=== PATIENT | female | born 1955 | race Two or more races ===

== ENCOUNTER 2023-05-12 03:54 | Emergency (ER) | payer OTHER ==
[2023-05-12] MEDS ORDERED: SODIUM CHLORIDE 0.9% 1,000 ML IV STA (04:08)
--- NOTE | 2023-05-12 04:08 | ED Physician Documentation ---
PD HPI FEMALE - Stated complaint Stated Complaint: blood in urine - History obtained from History obtained from: Patient - Additional information Additional information: 67-year-old female with no reported past medical history presents by private vehicle from home for painless hematuria. Patient states that she got up to use the restroom at 1 AM and noticed pink-tinged with blood clots to her urine. She states that this happened once 3 years ago and she was diagnosed with a kidney stone Review of Systems Constitutional: denies: Fever, Chills Ears: denies: Loss of hearing, Ear pain, Drainage/discharge GI: denies: Abdominal Pain, Nausea, Vomiting : reports: Dysuria, Hesitancy. denies: Frequency, Unable to Void, Incontinent Musculoskeletal: denies: Neck pain, Back pain, Extremity pain PD PAST MEDICAL HISTORY - Past Medical History Past Medical History: No : Kidney stones - Present Medications Home Medications: Ambulatory Orders Medication Instructions Recorded Confirmed Phenazopyridine HCl [Pyridium] 200 mg PO TID #20 tablet 05/12/23 cephALEXin [Keflex] 500 mg PO BID #14 cap 05/12/23 - Allergies Allergies/Adverse Reactions: Allergies Allergy/AdvReac Type Severity Reaction Status Date / Time No Known Drug Allergies Allergy Verified 05/12/23 04:03 PD ED PE NORMAL - Vitals Vital signs reviewed: Yes - General General: Alert and oriented X 3, No acute distress, Well developed/nourished - Cardiac Cardiac: RRR, Strong equal pulses - Respiratory Respiratory: No respiratory distress, Clear bilaterally - Abdomen Abdomen: Soft, Non tender, Non distended - Female Female : Other (cervical irritation, no bleeding, no abnormal discharge) - Rectal Rectal: Deferred - Derm Derm: Normal color, Warm and dry, No rash - Extremities Extremities: No deformity, No tenderness to palpate, Normal ROM s pain, No edema - Neuro Neuro: Alert and oriented X 3, 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, No motor deficit, Normal speech - Psych Psych: Normal mood, Normal affect Results - Vitals Vitals: Vital Signs - 24 hr 05/12/23 05/12/23 04:04 04:20 Temperature 36.8 C Heart Rate 77 90 Respiratory 16 16 Rate Blood Pressure 127/80 O2 Saturation 99 99 Oxygen O2 Source Room air - Labs Labs: Laboratory Tests 05/12/23 05/12/23 05/12/23 04:17 04:17 04:39 WBC 8.3 RBC 5.12 Hgb 14.2 Hct 44.2 MCV 86.3 MCH 27.7 MCHC 32.1 RDW 15.1 H Plt Count 288 MPV 9.1 Neut # (Auto) 5.5 Lymph # (Auto) 2.0 [place] # (Auto) 0.7 Eos # (Auto) 0.1 Baso # (Auto) 0.0 Absolute Nucleated RBC 0.00 Nucleated RBC % 0.0 Sodium 138 Potassium 3.8 Chloride 104 Carbon Dioxide 29 Anion Gap 5.0 L BUN 16 Creatinine 0.7 Estimated GFR (MDRD) 83 L Glucose 98 Calcium 9.7 Total Bilirubin 0.4 AST 25 ALT 35 Alkaline Phosphatase 110 Total Protein 7.0 Albumin 4.0 Globulin 3.0 Albumin/Globulin Ratio 1.3 Urine Color YELLOW Urine Clarity BLOODY Urine pH 6.0 Ur Specific [place] 1.025 Urine Protein 100 H Urine Glucose (UA) NEGATIVE Urine Ketones NEGATIVE Urine Occult Blood LARGE H Urine Nitrite NEGATIVE Urine Bilirubin NEGATIVE Urine Urobilinogen 0.2 (NORMAL) Ur Leukocyte Esterase TRACE H Urine RBC TNTC H Urine WBC 0-3 Ur Squamous Epith Cells RARE Squamous Urine Bacteria Rare Ur Microscopic Review INDICATED Urine Culture Comments INDICATED PD Medical Decision Making - ED course Complexity details: reviewed results, re-evaluated patient, considered differential, d/w patient, d/w family ED course: Painless hematuria. Patient states that 3 years ago she had something similar and she was diagnosed with a kidney stone. [place]-tinged urine by itself would be less concerning, however the presence of blood clots is concerning for underlying pathology, including stones. WIll obtain blood, urine and CT. Laboratory work is unremarkable. CT scan shows thickened endometrium of uterus, some hydronephrosis of the left kidney, and bladder thickening concerning for cystitis. No stone found. Due to the thickened endometrium a pelvic exam was performed on the patient which showed some cervical irritation, however no overt bleeding. In light of this, especially with dysuria and bladder wall thic kening will discharge with antibiotics and Pyridium. Patient was given a copy of her CT results and she and her were counseled on the importance of following up with the [facility] and urology for further investigation of her CT findings. Departure - Departure Disposition: 01 Home, Self Care Clinical Impression: Hematuria, Cystitis, Thickened endometrium Condition: Stable Instructions: ED UTI Cystitis Female Prescriptions: cephALEXin [Keflex] 500 mg PO BID #14 cap Phenazopyridine HCl [Pyridium] 200 mg PO TID #20 tablet Comments: You are being treated for cystitis today. You incidentally were found to have a thickened endometrium on your CT scan. This needs to be evaluated by [facility] as this in certain situations can be early beginnings of endometrial cancer. He will need to be evaluated by [facility] before any diagnosis can be made. You also had hydronephrosis, which is swelling of the kidney, however your kidney function on laboratory test was normal today. I strongly recommend that you follow-up with urology for your kidney. Call Saturday morning for next available appointments.
[2023-05-12 04:20] LABS: BASOPHILS % (AUTO) 0.4 %; EOSINOPHILS # (AUTO) 0.1 10^3/uL (0.0-0.7); EOSINOPHILS % (AUTO) 1.2 %; HCT - HEMATOCRIT 44.2 % (37.0-47.0); HGB - HEMOGLOBIN 14.2 g/dL (12.0-16.0); LYMPHOCYTES % (AUTO) 23.6 %; MEAN CORPUSCULAR HEMOGLOBIN 27.7 pg (27.0-31.0); MEAN CORPUSCULAR HGB CONC 32.1 g/dL (32.0-36.0); MEAN CORPUSCULAR VOLUME 86.3 fL (81.0-99.0); MEAN PLATELET VOLUME 9.1 fL (7.9-10.8); MONOCYTES # (AUTO) 0.7 10^3/uL (0.0-1.0); NEUTROPHILS # (AUTO) 5.5 10^3/uL (1.5-6.6); NEUTROPHILS % (AUTO) 66.7 %; PLT - PLATELET COUNT 288 10^3/uL (130-450); RED BLOOD COUNT 5.12 10^6/uL (4.20-5.40); RED CELL DISTRIBUTION WIDTH 15.1 % (12.0-15.0); WHITE BLOOD COUNT 8.3 x10^3/uL (4.8-10.8)
[2023-05-12 04:37] LABS: ALBUMIN/GLOBULIN RATIO 1.3 (1.0-2.2); BILIRUBIN,TOTAL 0.4 mg/dL (0.2-1.0); CALCIUM 9.7 mg/dL (8.5-10.3); CREATININE 0.7 mg/dL (0.6-1.3); POTASSIUM 3.8 mmol/L (3.5-4.5)
[2023-05-12 05:15] LABS: BILIRUBIN,URINE NEGATIVE (NEGATIVE); CLARITY,URINE BLOODY (CLEAR); GLUCOSE, URINE (UA) NEGATIVE (NEGATIVE); KETONES,URINE (UA) NEGATIVE (NEGATIVE); LEUKOCYTE ESTERASE, URINE TRACE (NEGATIVE); NITRITE,URINE NEGATIVE (NEGATIVE); OCCULT BLOOD,URINE LARGE (NEGATIVE); PROTEIN,URINE 100 mg/dL (NEGATIVE); UROBILINOGEN,URINE 0.2 (NORMAL) E.U./dL (NORMAL)
[2023-05-12 05:16] LABS: BACTERIA,URINE Rare /HPF (None Seen); RBC,URINE TNTC /HPF (0-5); SQUAMOUS EPITHELIAL CELL,UR RARE Squamous (<= Few); WBC,URINE 0-3 /HPF (0-5)
[2023-05-12] MEDS ORDERED: iohexoL-300 100 ML VIAL IVP ONE (05:33)
[2023-05-12 07:14] VITALS: BP 132/88
--- NOTE | 2023-05-12 09:31 | CT Report ---
PROCEDURE: ABDOMEN/PELVIS W INDICATIONS: PAINLESS HEMATURIA WITH CLOTS CONTRAST: 100 ML OMNI 300 TECHNIQUE: After the administration of intravenous contrast, 5 mm thick sections acquired from the diaphragms to the symphysis. 5 mm thick coronal and sagittal reformats were acquired. For radiation dose reducti on, the following was used: automated exposure control, adjustment of mA and/or kV according to beth ent size. COMPARISON: FINDINGS: Image quality: Excellent. Lung bases and heart: Bilateral breast implants are present. Liver: No solid mass. Gallbladder and biliary tree: Multiple calculi within the gallbladder lumen are present. There is dil atation of the common bile duct measuring 11 mm diameter. Spleen: No splenomegaly. Pancreas: No pancreatic ductal dilation. Adrenals: No adrenal nodule. Kidneys and ureters: Moderate left hydronephrosis and left renal pelvic dilatation. No right hydronep hrosis. Ureters appear nondistended. Bowel and peritoneum: No bowel distension. No pathologic free fluid. Normal appendix. Lymph nodes: No central or retroperitoneal adenopathy. Vessels: No infrarenal aortic aneurysm. PELVIS Reproductive organs: Enhancing focus within the anterior uterus measuring roughly 35 mm. Widening of the uterine fundal endometrium to 9 mm diameter. Bladder: No abnormal wall thickening, accounting for underdistension. Pelvic lymph nodes: No pelvic adenopathy by size criteria. Bones: No aggressive osseous abnormality. Other: No significant ventral or inguinal hernia. IMPRESSION: 1. Left hydronephrosis. 2. Biliary ductal dilatation. This could be further assessed with ERCP, if clinically indicated. 3. Cholelithiasis. 4. Uterine fibroid. 5. Endometrial thickening. Initial further assessment with pelvic ultrasound is recommended. 6. Concordant with preliminary interpretation. Reviewed by: Griselda Zabala MD on 05/12/2023 9:30 AM PDT Approved by: Griselda Zabala MD on 05/12/2023 9:30 AM PDT Station ID: [id number]
== END 2023-05-12 07:09 | disposition home or self-care (01) ==
LOC: ED 03:54
DX: N30.91 Cystitis, unspecified with hematuria (principal); N85.00 Endometrial hyperplasia, unspecified
CPT/HCPCS: 36415; 74177; 80053; 81001; 85025; 87086; 87181; 99283; 99284; Q9967; 81003